=== PATIENT | male | born 1965 | race Native Hawaiian/Other Pacific Islander ===

== ENCOUNTER 2018-09-16 10:04 | Outpatient (CLI) | payer BC | END 2018-09-16 19:18 | disposition home or self-care (01) | LOC: US 10:04 | DX: N50.819 Testicular pain, unspecified (principal) ==

== ENCOUNTER 2023-01-29 08:53 | Outpatient (CLI) | payer BC | END 2023-01-29 19:08 | disposition home or self-care (01) | LOC: RESP 08:53 | PROVIDERS: ATTEND Internal Medicine | DX: R94.31 Abnormal electrocardiogram [ECG] [EKG] (principal); R06.09 Other forms of dyspnea; R03.0 Elevated blood-pressure reading, without diagnosis of hypertension ==

== ENCOUNTER 2023-02-02 08:24 | Outpatient (CLI) | payer BC | END 2023-02-02 19:41 | disposition home or self-care (01) | LOC: NM 08:24 | PROVIDERS: ATTEND Internal Medicine | DX: R94.31 Abnormal electrocardiogram [ECG] [EKG] (principal); R06.09 Other forms of dyspnea; R03.0 Elevated blood-pressure reading, without diagnosis of hypertension | CPT/HCPCS: A9500 ==